=== PATIENT | male | born 1955 | race Caucasian/White ===

== ENCOUNTER → 2017-03-30 | Outpatient (CLI) | payer OTHER ==
--- NOTE | 2017-03-30 16:07 | XR ---
Thoracic spine and lumbar spine HISTORY: Back pain, kyphosis 2 views of the thoracic spine correlated to lumbar spine, 3 views, same date, CT chest 04/12/2016 Kyphosis centered at the thoracic lumbar junction is present. Anterior wedge deformity present at T12 . Frontal view does not show superior thoracic spine, L1 is not included. Multilevel spondylosis is p resent. Bone mineralization is reduced. Loss of disc height present especially at L5-S1. Sclerosis pr esent in the posterior elements. Vascular calcifications are noted incidentally. There is likely a sp inal curvature in the thoracic spine. IMPRESSION: Osteopenia. Compression fracture T12 with kyphosis has likely progressed since prior CT. Degenerative disc disease and scoliosis. Facet arthropathy.
== END | disposition home or self-care (01) ==
LOC: RADXRYALE 14:55
PROVIDERS: ATTEND Physician Assistant Medical
DX: S22.089A Unspecified fracture of T11-T12 vertebra, initial encounter for closed fracture (principal); M51.35 Other intervertebral disc degeneration, thoracolumbar region; M12.88 Other specific arthropathies, not elsewhere classified, other specified site; M40.204 Unspecified kyphosis, thoracic region; M85.88 Other specified disorders of bone density and structure, other site
CPT/HCPCS: 72070; 72100

== ENCOUNTER → 2017-04-19 | Outpatient (CLI) | payer OTHER ==
--- NOTE | 2017-04-19 16:37 | XR ---
EXAMINATION TYPE: XR ribs LT w pa chest xray DATE OF EXAM: 04/19/2017 CLINICAL HISTORY: Left rib pain after injury. TECHNIQUE: Single frontal view of the chest is obtained. Additionally oblique views of the left ribs were obtained. COMPARISON: None FINDINGS: There is no focal air space opacity, pleural effusion, or pneumothorax seen. There is tort uosity of the thoracic aorta. The cardiac silhouette size is within normal limits. The osseous stru ctures are intact. Nondisplaced fractures of the anterior lateral margin of the left ribs 6 and 7. Th e lungs are mildly hyperinflated with no flattening of the diaphragms. IMPRESSION: 1. Nondisplaced fractures of the anterolateral left ribs 6 and 7. 2. No acute cardiopulmonary process.
== END | disposition home or self-care (01) ==
LOC: RADXRYALE 14:48
PROVIDERS: ATTEND Physician Assistant Medical
DX: S22.42XA Multiple fractures of ribs, left side, initial encounter for closed fracture (principal)